=== PATIENT | female | born 1950 | race Caucasian/White ===

== ENCOUNTER 2017-06-16 22:53 | Emergency (ER) | payer MEDICARE, MEDICAID ==
--- NOTE | 2017-06-16 23:20 | ER Document Report ---
ED General - General Chief Complaint: Abdominal Pain Stated Complaint: ABDOMINAL PAIN Time Seen by Provider: 06/16/17 23:05 Notes: Patient is a 67-year-old female presents with complaint of pain in her vaginal area. Is worse with urination. She does note some blood whenever she urinates. She does have history of cervical cancer. She still has her cervix. She said they did a type of packing where they placed a packing that causes radiation to treat the cancer. She did get chemotherapy. Last chemotherapy was year ago. She has been cancer free since then. She gets checkups with her oncologist every 4 months and at her last checkup she was cancer free. She does also have a previous history of breast cancer. This was many years ago. Her granddaughter is in room and also mentions that she has been having intermittent sharp chest pain. Patient says that for last week she will occasionally have a very quick sharp chest pain that lasts only a minute and then goes away. She is not currently having that at this time. She denies any fevers. No vomiting. No diarrhea. No other complaints at this time. She quit smoking 5 years ago. She does not drink alcohol or do drugs. TRAVEL OUTSIDE OF THE [place] IN LAST 30 DAYS: No - Related Data Allergies/Adverse Reactions: No Known Allergies Allergy (Verified 06/16/17 23:14) Past Medical History - Social History Smoking Status: Former Smoker Frequency of alcohol use: None Drug Abuse: None Family History: Reviewed & Not Pertinent Patient has suicidal ideation: No Patient has homicidal ideation: No - Past Medical History Cardiac Medical History: Reports: Hx Hypertension Denies: Hx Heart Attack Pulmonary Medical History: Denies: Hx Asthma Neurological Medical History: Denies: Hx Cerebrovascular Accident, Hx Seizures Renal/ Medical History: Denies: Hx Peritoneal Dialysis GI Medical History: Denies: Hx Hepatitis, Hx Hiatal Hernia, Hx Ulcer Infectious Medical History: Denies: Hx Hepatitis Past Surgical History: Denies: Hx Mastectomy - LUMPECTOMY, Hx Open Heart Surgery , Hx Pacemaker - Immunizations Immunizations up to date: Yes Hx Diphtheria, Pertussis, Tetanus Vaccination: Yes Review of Systems - Review of Systems Notes: My Normal Review Basic REVIEW OF SYSTEMS: CONSTITUTIONAL : Denies fever, chills, or sweats. Denies recent illness. EENT: Denies eye, ear, throat, or mouth pain or symptoms. Denies nasal or sinus congestion. CARDIOVASCULAR: Intermittent quick sharp chest pain RESPIRATORY: Denies cough, cold, or chest congestion. Denies shortness of breath, difficulty breathing, or wheezing. GASTROINTESTINAL: Denies abdominal pain. Denies nausea, vomiting, or diarrhea. GENITOURINARY: Dysuria FEMALE GENITOURINARY: Denies vaginal bleeding, abnormal or irregular periods. Pelvic pain MUSCULOSKELETAL: Denies neck or back pain or joint pain or swelling. SKIN: Denies rash or skin lesions. NEUROLOGICAL: Denies altered mental status or loss of consciousness. Denies headache. Denies weakness or paralysis or loss of use of either side. Denies problems with gait or speech. Denies sensory or motor loss. ALL OTHER SYSTEMS REVIEWED AND NEGATIVE. Physical Exam - Vital signs Vitals: Temp Pulse Resp BP Pulse Ox 98.8 F 75 18 149/55 H 92 06/16/17 22:59 06/16/17 22:59 06/16/17 22:59 06/16/17 22:59 06/16/17 22:59 - Notes Notes: General Appearance: Well nourished, alert, cooperative, no acute distress, mild obvious discomfort. Vitals: reviewed, See vital signs table. Head: no swelling or tenderness to the head Eyes: PERRL, EOMI, Conjuctiva clear Mouth: Few very small aphthous type ulcerations on the inside of the lower lip. Throat: No tonsillar inflammation, No airway obstruction, No lymphadenopathy Neck: Supple, no neck tenderness, Lungs: No wheezing, No rales, No rhonci, No accessory muscle use, good air exchange bilaterally. Heart: Normal rate, Regular rythm, No murmur, no rub Abdomen: Normal BS, soft, No rigidity, some suprapubic abdominal tenderness to palpation., No guarding, no rebound, no abdominal masses, no organomegaly Pelvic: Some excoriation within the vaginal vault. Small amount of tinged discharge. Was unable to see cervix. Extremities: strength 5/5 in all extremities, good pulses in all extremities, no swelling or tenderness in the extremities, no edema. Skin: warm, dry, appropriate color, no rash Neuro: speech clear, oriented x 3, normal affect, responds appropriately to questions. Course - Re-evaluation Re-evalutation: 06/17/17 00:15 Patient had what appeared to be some abnormal discharge excoriations in the vaginal vault. She has a lot of bacteria in the urine. She has history of cervical cancer. Based on her exam is suspect most likely infections, more from the vaginal vault and the actual bladder itself. Due to her history of cancer and treatment and the findings suggest infection I do think she needs imaging of the pelvic region. She had a lot of pain during speculum exam and therefore I do not think she would tolerate a transvaginal ultrasound to get imaging of the pelvis. I will start with a transabdominal ultrasound of the pelvis. If this does not give me appropriate imaging that we may proceed to a CT scan. 06/17/17 00:17 06/17/17 03:[address] Colby, OB physicain covering for Dr. Cooper, reviewed the patient's symptoms and workup my concerns. She agrees that she will have the patient follow-up closely in office. She said she will send a note to the office call the patient Sunday to make a close follow-up appointment this coming week. Patient does have a lot of white blood cells and her urine however I think this is actually coming from the vaginal source being that on exam patient has blood-tinged discharge coming from the vaginal area with a lot of pain on speculum exam. I will place her on Cipro. I informed patient that she does not hear from her OB office by Sunday afternoon that she should call them to find out what her appointment is. I encouraged her return to ER immediately if she has fevers, worsening pain, vomiting, or feels unwell. Patient has no history of seizures no history of medical allergies. Patient agrees with plan will be discharged home. Dictation of this chart was performed using voice recognition software; therefore, there may be some unintended grammatical errors. - Vital Signs Vital signs: Temp Pulse Resp BP Pulse Ox 98.1 F 64 16 121/51 L 98 06/17/17 04:29 06/17/17 04:29 06/17/17 04:29 06/17/17 04:29 06/17/17 04:29 - Laboratory Result Diagrams: 06/16/17 22:22 06/16/17 22:22 Laboratory results interpreted by me: 06/16/17 06/16/17 06/16/17 22:22 22:22 23:20 Hgb 11.3 L Hct 34.4 L MCH 26.9 L RDW 15.9 H BUN 21 H Urine Protein >=500 H Urine Ketones TRACE H Urine Blood MODERATE H Urine Urobilinogen 2.0 H Ur Leukocyte Esterase MODERATE H Urine Ascorbic Acid 40 H - EKG Interpretation by Me Additional EKG results interpreted by me: 06/16/17 23:33 EKG is reviewed and interpreted by me. EKG shows sinus rhythm with rate of [address] segment elevation or depression. No ischemic T-wave inversions. WA interval, QRS duration, QTc intervals are within normal range. Old EKG available for comparison. Discharge - Discharge Clinical Impression: Pelvic pain, abnormal discharge, Pyuria Condition: Good Disposition: HOME, SELF-CARE Instructions: Oral Narcotic Medication ([facility]) Additional Instructions: You should be hearing from Dr. Cooper's office on Sunday for a close follow up appointment. Call the office if you do not hear from them by Sunday. Based on your exam I suspect you have an infection coming from the vaginal area. The exact cause of this is unclear and therefore you do need to be sure to follow up closely with Dr. King because of your symptoms and history of cervical cancer. please return to the ER immediately if you have intractable pain, fevers, vomiting, or feel unwell. Prescriptions: Tramadol HCl [Ultram 50 mg Tablet] 50 mg PO Q6HP PRN #20 tablet PRN Reason: Ciprofloxacin HCl [Cipro 500 mg Tablet] 500 mg PO BID #14 tablet
[2017-06-16 23:24] LABS: ABSOLUTE EOSINOPHILS # (AUTO) 0.1 10^3/uL (0.0-0.6); ABSOLUTE LYMPHOCYTES (AUTO) 1.2 10^3/uL (0.5-4.7); ABSOLUTE MONOCYTES (AUTO) 0.6 10^3/uL (0.1-1.4); ABSOLUTE NEUT (AUTO) 5.6 10^3/uL (1.7-8.2); BASOPHILS % (AUTO) 0.4 % (0-2); EOSINOPHILS % (AUTO) 1.4 % (0-6); HEMATOCRIT 34.4 % (36.0-47.0); HEMOGLOBIN 11.3 g/dL (12.0-15.5); LYMPHOCYTES % (AUTO) 15.9 % (13-45); MEAN CORPUSCULAR HEMOGLOBIN 26.9 pg (27.0-33.4); MEAN CORPUSCULAR VOLUME 82 fl (80-97); MONOCYTES % (AUTO) 7.8 % (3-13); PLATELET COUNT 231 10^3/uL (150-450); RED BLOOD COUNT 4.21 10^6/uL (3.72-5.28); RED CELL DISTRIBUTION WIDTH 15.9 % (11.5-14.0); SEGMENTED NEUTROPHILS % (AUTO) 74.5 % (42-78); TOTAL CELLS COUNTED % (AUTO) 100 %; WHITE BLOOD COUNT 7.5 10^3/uL (4.0-10.5)
[2017-06-16 23:34] LABS: ALANINE AMINOTRANSFERASE 27 U/L (9-52); ALBUMIN 4.1 g/dL (3.5-5.0); ALKALINE PHOSPHATASE 92 U/L (38-126); ANION GAP 13 (5-19); ASPARTATE AMINO TRANSFERASE 23 U/L (14-36); BILIRUBIN,DIRECT 0.2 mg/dL (0.0-0.4); BILIRUBIN,TOTAL 0.3 mg/dL (0.2-1.3); BLOOD UREA NITROGEN 21 mg/dL (7-20); CALCIUM 9.5 mg/dL (8.4-10.2); CARBON DIOXIDE 27 mmol/L (22-30); CHLORIDE 102 mmol/L (98-107); GLUCOSE 104 mg/dL (75-110); LIPASE 45.3 U/L (23-300); TOTAL PROTEIN 6.8 g/dL (6.3-8.2)
[2017-06-16 23:41] LABS: APPEARANCE,URINE CLOUDY; BILIRUBIN,URINE NEGATIVE (NEGATIVE); CALCIUM OXALATE CRYSTALS,URINE FEW /HPF; COLOR,URINE YELLOW; GLUCOSE, URINE NEGATIVE (NEGATIVE); KETONES,URINE TRACE mg/dL (NEGATIVE); LEUKOCYTE ESTERASE,URINE MODERATE (NEGATIVE); NITRITE,URINE NEGATIVE (NEGATIVE); PROTEIN,URINE >=500 mg/dL (NEGATIVE)
[2017-06-16] MEDS ORDERED: MORPHINE SULFATE 10 MG/ML INJ IV ONE (23:42)
[2017-06-16 23:53] LABS: RBCS (WET MOUNT) 3+ RBCS SEEN; T.VAGINALIS (WET MOUNT) NO TRICHOMONAS SEEN; WBCS (WET MOUNT) 1+ WBCS SEEN; YEAST (WET MOUNT) YEAST SEEN
--- NOTE | 2017-06-16 23:54 | EKG REPORT ---
SEVERITY:- ABNORMAL ECG - SINUS RHYTHM PROBABLE LEFT ATRIAL ABNORMALITY INCOMPLETE RIGHT BUNDLE BRANCH BLOCK : Confirmed by: Vincent Dash MD 16-Jun-2017 23:53:49
[2017-06-17] MEDS ORDERED: MORPHINE SULFATE 10 MG/ML INJ IV ONE (00:21)
[2017-06-17] MEDS ORDERED: FENTANYL CITRATE INJ/PF 100 MCG/2 ML AMPUL IV ONE (00:46)
--- NOTE | 2017-06-17 02:18 | RADIOLOGY REPORT (SQ) ---
EXAM DESCRIPTION: U/S NON OB PEL LTD W/DOPPLER CLINICAL HISTORY: 67 years, Female, pelvic pain with discharge, Hx cervical cancer COMPARISON: None. Technique/limitation: Transabdominal only, body habitus, bowel gas FINDINGS: 5.2 cm uterus, 0.2 cm thick endometrial stripe, and bilateral ovarian fossae appear unremarkable. Ovaries are not directly visualized. No significant free fluid. IMPRESSION: Endometrial atrophy. Limitation.
--- NOTE | 2017-06-17 03:06 | RADIOLOGY REPORT (SQ) ---
EXAM DESCRIPTION: CT PELVIS WITH CLINICAL HISTORY: 67 years Female, history of cervical cancer, abnormal discharge COMPARISON: Ultrasound, pelvis, same day. TECHNIQUE: IV contrast. Coronal and sagittal reformat. This exam was performed according to our departmental dose-optimization program, which includes automated exposure control, adjustment of the mA and/or kV according to patient size and/or use of iterative reconstruction technique. FINDINGS: No acute findings. No significant free fluid of the pelvis. Right upper abdominal clips. Pelvic clips/metallic seeds associated with the cervix consistent with history of cervical cancer. Moderate colonic diverticulosis. Atherosclerosis. Likely benign 3.5 cm left renal cyst. Mild L5 vertebral compression deformity. Moderate vacuum disc desiccation between the L4 and S1 levels. Small disc bulge between L4 and S1 levels. Mild spondylosis of the lower lumbar spine. Small subchondral degenerative cysts of the right femoral head. Mild sacroiliac osteoarthritis. Remaining visualized pelvic structures including vasculature and lymphatics appear otherwise unremarkable. IMPRESSION: No acute findings.
[2017-06-17] MEDS ORDERED: CIPROFLOXACIN HCL 500 MG TABLET PO ONE (03:47)
[2017-06-17 04:30] VITALS: BP 121/51
== END 2017-06-17 04:30 | disposition home or self-care (01) ==
LOC: ER 22:53
DX: N39.0 Urinary tract infection, site not specified (principal); N89.8 Other specified noninflammatory disorders of vagina; R10.2 Pelvic and perineal pain; R10.9 Unspecified abdominal pain; Z85.41 Personal history of malignant neoplasm of cervix uteri
CPT/HCPCS: 93005; 99285; 96374; 36415; 87210; 83690; 85025; 80053; 81001; 84484; 76857; 93976; 72193; 93010; A9270; J3010

== ENCOUNTER 2017-09-12 03:55 | Emergency (ER) | payer MEDICARE, MEDICAID ==
[2017-09-12] MEDS ORDERED: ASPIRIN 81 MG TABLET, CHEWABLE PO ONE (03:57)
[2017-09-12 04:46] LABS: ABSOLUTE EOSINOPHILS # (AUTO) 0.1 10^3/uL (0.0-0.6); ABSOLUTE LYMPHOCYTES (AUTO) 1.3 10^3/uL (0.5-4.7); ABSOLUTE MONOCYTES (AUTO) 0.6 10^3/uL (0.1-1.4); ABSOLUTE NEUT (AUTO) 4.8 10^3/uL (1.7-8.2); BASOPHILS % (AUTO) 0.5 % (0-2); EOSINOPHILS % (AUTO) 1.4 % (0-6); HEMATOCRIT 32.2 % (36.0-47.0); HEMOGLOBIN 10.7 g/dL (12.0-15.5); LYMPHOCYTES % (AUTO) 19.2 % (13-45); MEAN CORPUSCULAR HEMOGLOBIN 27.2 pg (27.0-33.4); MEAN CORPUSCULAR HGB CONC 33.3 g/dL (32.0-36.0); MEAN CORPUSCULAR VOLUME 82 fl (80-97); MONOCYTES % (AUTO) 8.6 % (3-13); PLATELET COUNT 245 10^3/uL (150-450); RED BLOOD COUNT 3.94 10^6/uL (3.72-5.28); RED CELL DISTRIBUTION WIDTH 15.5 % (11.5-14.0); SEGMENTED NEUTROPHILS % (AUTO) 70.3 % (42-78); TOTAL CELLS COUNTED % (AUTO) 100 %; WHITE BLOOD COUNT 6.8 10^3/uL (4.0-10.5)
--- NOTE | 2017-09-12 04:47 | RADIOLOGY REPORT (SQ) ---
EXAM DESCRIPTION: XR CHEST 1 VIEW COMPLETED DATE/TME: 09/12/2017 03:57 CLINICAL HISTORY: CP COMPARISON: None. FINDINGS: Single frontal view of the chest. Atherosclerotic calcification of the aortic arch. Heart is not enlarged. Leads overlie the chest. No consolidation, pneumothorax, or pleural effusion. No displaced rib fractures identified. Upper abdominal soft tissues are unremarkable. IMPRESSION: 1. No acute pulmonary process identified.
--- NOTE | 2017-09-12 05:12 | ER Document Report ---
ED Medical Screen (RME) - General Chief Complaint: Chest Pain Stated Complaint: CHEST PAIN Time Seen by Provider: 09/12/17 05:03 Notes: 67-year-old female comes by EMS for chief complaint of chest pain that began at 1:00, she states the pain is in her left upper chest and going into her left arm , states she felt some numbness in the arm, she states the pain is resolved but she still feels a little bit of numbness. She states she felt short of breath with the pain but this resolved. Denies nausea vomiting, abdominal pain, flank pain, dizziness. No history of CA, family history of CA. No smoking, past medical history includes hypertension, hyperlipidemia. Former breast cancer and cervical cancer survivor and, no current chemotherapy or radiation. TRAVEL OUTSIDE OF THE [place] IN LAST 30 DAYS: No - Related Data Allergies/Adverse Reactions: No Known Allergies Allergy (Verified 06/16/17 23:14) Past Medical History - Past Medical History Cardiac Medical History: Reports: Hx Hypertension Denies: Hx Heart Attack Pulmonary Medical History: Denies: Hx Asthma Neurological Medical History: Denies: Hx Cerebrovascular Accident, Hx Seizures Renal/ Medical History: Denies: Hx Peritoneal Dialysis GI Medical History: Reports: Hx Gastroesophageal Reflux Disease, Hx Hiatal Hernia. Denies: Hx Hepatitis, Hx Ulcer Infectious Medical History: Denies: Hx Hepatitis Past Surgical History: Reports: Hx Cholecystectomy, Hx Orthopedic Surgery - BACK. Denies: Hx Open Heart Surgery, Hx Pacemaker. Comment Only: Hx Mastectomy - LUMPECTOMY - Immunizations Immunizations up to date: Yes Hx Diphtheria, Pertussis, Tetanus Vaccination: Yes Physical Exam - General General appearance: Appears well In distress: None - Cardiovascular Rhythm: Regular. No: Tachycardia Heart sounds: Normal auscultation, S1 appreciated, S2 appreciated Course - Laboratory Result Diagrams: 09/12/17 04:02 09/12/17 04:02 Laboratory results interpreted by me: 09/12/17 04:02 Hgb 10.7 L Hct 32.2 L RDW 15.5 H Doctor's Discharge - Discharge Referrals: KATLYN JOSEPH NP [Primary Care Provider] - Follow up as needed
[2017-09-12 05:54] LABS: ALANINE AMINOTRANSFERASE 25 U/L (9-52); ALBUMIN 3.5 g/dL (3.5-5.0); ALKALINE PHOSPHATASE 91 U/L (38-126); ANION GAP 10 (5-19); ASPARTATE AMINO TRANSFERASE 20 U/L (14-36); BILIRUBIN,DIRECT 0.2 mg/dL (0.0-0.4); BILIRUBIN,TOTAL 0.2 mg/dL (0.2-1.3); BLOOD UREA NITROGEN 23 mg/dL (7-20); CALCIUM 9.3 mg/dL (8.4-10.2); CARBON DIOXIDE 31 mmol/L (22-30); CHLORIDE 104 mmol/L (98-107); CREATINE KINASE 44 U/L (30-135); GLUCOSE 123 mg/dL (75-110); POTASSIUM 4.4 mmol/L (3.6-5.0); SODIUM 144.9 mmol/L (137-145); TOTAL PROTEIN 6.5 g/dL (6.3-8.2)
[2017-09-12 06:05] LABS: CREATINE KINASE MB 1.12 ng/mL (<4.55)
[2017-09-12 06:06] LABS: TROPONIN I < 0.012 ng/mL
[2017-09-12] MEDS ORDERED: FENTANYL CITRATE INJ/PF 100 MCG/2 ML AMPUL IV ONE (06:47)
--- NOTE | 2017-09-12 07:15 | EKG REPORT ---
SEVERITY:- ABNORMAL ECG - SINUS RHYTHM PROBABLE LEFT ATRIAL ABNORMALITY RIGHT BUNDLE BRANCH BLOCK : Confirmed by: Vincent Dash MD 12-Sep-2017 07:14:31
--- NOTE | 2017-09-12 07:17 | ER Document Report ---
ED General - General Chief Complaint: Chest Pain Stated Complaint: CHEST PAIN Time Seen by Provider: 09/12/17 05:03 Mode of Arrival: Ambulatory Information source: Patient Notes: 67-year-old female with hypothyroidism, hyperlipidemia, hypertension presents with complaint of left-sided chest and arm pain that started 6 hours prior to arrival. Patient describes the pain as pressure-like, constant. She does have radiation of pain to her left arm. She does report an increase in activity and states that she helped her sister clean all day yesterday. She denies any associated diaphoresis, lightheadedness, shortness of breath. She states that she has been otherwise healthy. She denies any recent fever, chills, cough, abdominal pain, back pain. Patient also reports bright red blood per rectum that occurred 2 days prior to arrival. She is therefore declining aspirin. TRAVEL OUTSIDE OF THE [place] IN LAST 30 DAYS: No - HPI Onset: Just prior to arrival Onset/Duration: Sudden, Constant Quality of pain: Pressure Severity: Mild Associated symptoms: Chest pain. denies: Productive cough, Fever, Nausea, Vomiting, Shortness of breath Exacerbated by: Movement Relieved by: Remaining still Similar symptoms previously: No Recently seen / treated by doctor: Yes - Related Data Allergies/Adverse Reactions: hydromorphone [From Dilaudid] Allergy (Verified 09/12/17 07:02) Past Medical History - General Information source: Patient, [facility] Records - Social History Smoking Status: Never Smoker Chew tobacco use (# tins/day): No Frequency of alcohol use: None Drug Abuse: None Lives with: Family Family History: Reviewed & Not Pertinent Patient has suicidal ideation: No Patient has homicidal ideation: No - Past Medical History Cardiac Medical History: Reports: Hx Hypertension Denies: Hx Heart Attack Pulmonary Medical History: Denies: Hx Asthma Neurological Medical History: Denies: Hx Cerebrovascular Accident, Hx Seizures Renal/ Medical History: Denies: Hx Peritoneal Dialysis GI Medical History: Reports: Hx Gastroesophageal Reflux Disease, Hx Hiatal Hernia. Denies: Hx Hepatitis, Hx Ulcer Infectious Medical History: Denies: Hx Hepatitis Past Surgical History: Reports: Hx Cholecystectomy, Hx Orthopedic Surgery - BACK. Denies: Hx Open Heart Surgery, Hx Pacemaker. Comment Only: Hx Mastectomy - LUMPECTOMY - Immunizations Immunizations up to date: Yes Hx Diphtheria, Pertussis, Tetanus Vaccination: Yes Review of Systems - Review of Systems Notes: REVIEW OF SYSTEMS: CONSTITUTIONAL : Denies fever, chills, or sweats. Denies recent illness. Denies weight loss, recent hospitalizations. EENT: Denies visula changes, eye pain. Denies nasal or sinus congestion or discharge. Denies sore throat, oral lesions, difficulty swallowing. CARDIOVASCULAR: Denies palpitations or racing or irregular heart beat. Denies lower extremity edema. RESPIRATORY: Denies cough, cold, or chest congestion. Denies shortness of breath, difficulty breathing, or wheezing. GASTROINTESTINAL: Denies abdominal pain or distention. Denies nausea, vomiting , or diarrhea. Denies blood in vomitus. Denies black, tarry stools. Denies constipation. GENITOURINARY: Denies difficulty urinating, painful urination, burning, frequency, blood in urine, or vaginal discharge. MUSCULOSKELETAL: Denies back or neck pain or stiffness. SKIN: Denies rash, lesions or sores. HEMATOLOGIC : Denies easy bruising or bleeding. LYMPHATIC: Denies swollen, enlarged glands. NEUROLOGICAL: Denies confusion or altered mental status. Denies passing out or loss of consciousness. Denies dizziness or lightheadedness. Denies headache. Denies weakness or paralysis or loss of use of either side. Denies problems with gait or speech. Denies sensory loss, numbness, or tingling. Denies seizures. PSYCHIATRIC: Denies anxiety or stress. Denies depression, suicidal ideation, or homicidal ideation. Physical Exam - Vital signs Vitals: Pulse Ox 100 09/12/17 04:11 - Notes Notes: PHYSICAL EXAMINATION: GENERAL: Well-appearing, well-nourished and in no acute distress. HEAD: Atraumatic, normocephalic. EYES: Pupils equal round and reactive to light, extraocular movements intact, conjunctiva are normal. ENT: Nares patent, oropharynx clear without exudates. Moist mucous membranes. NECK: Normal range of motion, supple without lymphadenopathy LUNGS: Breath sounds clear to auscultation bilaterally and equal. No wheezes rales or rhonchi. Anterior chest tenderness with palpation. HEART: Regular rate and rhythm without murmurs ABDOMEN: Soft, nontender, nondistended abdomen. No guarding, no rebound. No masses appreciated. Female : deferred Musculoskeletal: Pain with range of motion of the left arm. Radial pulse intact. Cap refill less than 2 seconds. Sensation intact. NEUROLOGICAL: Cranial nerves grossly intact. Normal speech, normal gait. Normal sensory, motor exams PSYCH: Normal mood, normal affect. SKIN: Warm, Dry, normal turgor, no rashes or lesions noted. Course - Re-evaluation Re-evalutation: 09/12/17 07:16 Laboratory 09/12/17 09/12/17 09/12/17 04:02 04:02 04:02 WBC 6.8 RBC 3.94 Hgb 10.7 L Hct 32.2 L MCV 82 MCH 27.2 MCHC 33.3 RDW 15.5 H Plt Count 245 Seg Neutrophils % 70.3 Lymphocytes % 19.2 Monocytes % 8.6 Eosinophils % 1.4 Basophils % 0.5 Absolute Neutrophils 4.8 Absolute Lymphocytes 1.3 Absolute Monocytes 0.6 Absolute Eosinophils 0.1 Absolute Basophils 0.0 Sodium Cancelled Potassium Cancelled Chloride Cancelled Carbon Dioxide Cancelled Anion Gap Cancelled BUN Cancelled Creatinine Cancelled Est GFR ( Amer) Cancelled Est GFR (Non-Af Amer) Cancelled Glucose Cancelled Calcium Cancelled Total Bilirubin Cancelled Direct Bilirubin Cancelled Neonat Total Bilirubin Cancelled Neonat Direct Bilirubin Cancelled Neonat Indirect Bili Cancelled AST Cancelled ALT Cancelled Alkaline Phosphatase Cancelled Creatine Kinase Cancelled CK-MB (CK-2) Cancelled Troponin I Cancelled Total Protein Cancelled Albumin Cancelled Stool Occult Blood 09/12/17 09/12/17 09/12/17 05:25 05:25 06:15 WBC RBC Hgb Hct MCV MCH MCHC RDW Plt Count Seg Neutrophils % Lymphocytes % Monocytes % Eosinophils % Basophils % Absolute Neutrophils Absolute Lymphocytes Absolute Monocytes Absolute Eosinophils Absolute Basophils Sodium 144.9 Potassium 4.4 Chloride 104 Carbon Dioxide 31 H Anion Gap 10 BUN 23 H Creatinine 0.93 Est GFR ( Amer) > 60 Est GFR (Non-Af Amer) > 60 Glucose 123 H Calcium 9.3 Total Bilirubin 0.2 Direct Bilirubin 0.2 Neonat Total Bilirubin Not Reportable Neonat Direct Bilirubin Not Reportable Neonat Indirect Bili Not Reportable AST 20 ALT 25 Alkaline Phosphatase 91 Creatine Kinase 44 CK-MB (CK-2) 1.12 Troponin I < 0.012 Total Protein 6.5 Albumin 3.5 Stool Occult Blood NEGATIVE 09/12/17 07:16 67-year-old female with hypothyroidism, hyperlipidemia, hypertension presents with complaint of left-sided chest and arm pain that started 6 hours prior to arrival. Patient describes the pain as pressure-like, constant. She does have radiation of pain to her left arm. She does report an increase in activity and states that she helped her sister clean all day yesterday. She denies any associated diaphoresis, lightheadedness, shortness of breath. Patient was seen by myself upon arrival. Vital signs were reviewed. Patient is afebrile, mildly hypertensive and not hypoxic. Patient does not appear toxic or dehydrated. They are in no acute distress. Previous medical records and nursing notes reviewed. Significant findings include reproducible chest pain with palpation and reproducible arm pain with movement of the left arm. CBC shows no leukocytosis and mild anemia, which when compared to previous laboratory testing is the patient's baseline. Patient had negative troponin 2. Stool was negative for blood. CMP showed mildly elevated BUN, normal creatinine and no other electrolyte abnormalities. Patient refusing aspirin because she saw bright red blood in her stool 2 days ago. On rectal exam stool is brown and again occult negative. Patient did receive fentanyl for pain. On reevaluation her pain is now resolved. Patient provided the opportunity to ask questions, and express concerns. Discharge instructions discussed. Patient is agreeable with discharge home. Return indications explained and discussed with the patient who displays understanding. Patient encouraged to return to the emergency department immediately with any concerns. 09/12/17 08:29 I did explain to the patient that I would like to repeat her troponin at 930. She is initially cooperative and agreeable but then the nurse called me and and she stated that I never told her this. Patient does not want a redraw of her blood because it "hurts". She states "I am fine". We will attempt to draw the troponin off the line but otherwise patient is refusing repeat blood draw. 09/12/17 09:32 Patient reevaluated and remains chest pain-free. Repeat troponin are within normal limits. Heart score-3 making her risk for adverse cardiac events in the next 30 days 0.9 -1.7% 09/12/17 14:25 09/12/17 14:27 09/12/17 14:28 After performing a Medical Screening Examination, I estimate there is LOW risk for RUPTURED ESOPHAGUS, PNEUMOTHORAX, PULMONARY EMBOLISM, ACUTE CORONARY SYNDROME, OR THORACIC AORTIC DISSECTION, thus I consider the discharge disposition reasonable. I have reevaluated this patient multiple times and no significant life threatening changes are noted. The patient and I have discussed the diagnosis and risks, and we agree with discharging home with close follow-up. We also discussed returning to the Emergency Department immediately if new or worsening symptoms occur. We have discussed the symptoms which are most concerning (e.g., bloody sputum, worsening pain or shortness of breath) that necessitate immediate return. - Vital Signs Vital signs: Temp Pulse Resp BP Pulse Ox 97.9 F 60 18 140/58 H 97 09/12/17 09:51 09/12/17 09:51 09/12/17 09:51 09/12/17 09:51 09/12/17 09:51 - Laboratory Result Diagrams: 09/12/17 04:02 09/12/17 05:25 Laboratory results interpreted by me: 09/12/17 09/12/17 04:02 05:25 Hgb 10.7 L Hct 32.2 L RDW 15.5 H Carbon Dioxide 31 H BUN 23 H Glucose 123 H - Diagnostic Test Radiology reviewed: Image reviewed, Reports reviewed - EKG Interpretation by Me EKG shows normal: Sinus rhythm Rate: Normal Rhythm: NSR Tower/QRS: RBBB Discharge - Discharge Clinical Impression: Left arm pain, Chest wall pain Disposition: HOME, SELF-CARE Instructions: Chest Wall Pain ([facility]) Additional Instructions: Your stool was negative for blood today. Your cardiac workup was within normal limits. I believe your pain is musculoskeletal. Please contact her primary care physician and let them know that you were seen in the emergency room today. Please return with any concerns. Follow up with your physician tomorrow for further care or return to the ED IMMEDIATELY if symptoms worsen or new concerns occur. If you cannot afford to follow up with your primary care physician a list of low cost clinics have been provided at the end of your discharge papers as well. Forms: Elevated Blood Pressure Referrals: KATLYN JOSEPH NP [Primary Care Provider] - Follow up in 3-5 days
[2017-09-12 09:53] VITALS: BP 140/58
== END 2017-09-12 09:53 | disposition home or self-care (01) ==
LOC: ER 03:55
DX: R07.89 Other chest pain (principal); M79.602 Pain in left arm; I45.10 Unspecified right bundle-branch block; I10 Essential (primary) hypertension; D64.9 Anemia, unspecified; Z88.5 Allergy status to narcotic agent
CPT/HCPCS: 93005; 99285; 96374; 36415; 82553; 82550; 85025; 82272; 80053; 84484; 71045; 93010; J3010